=== PATIENT | male | born 1955 | race Caucasian/White ===

== ENCOUNTER 2019-02-22 10:57 | Day surgery (SDC) | payer OTHER ==
[~2019-02-22] VITALS: Ht 180.3 cm; Wt 104.3 kg
[~2019-02-22 10:57] MED LIST: ALEV220T22 PO; FISH1000 PO; MULTCAP PO; NS 1,000 ML IV ONE; OMEP20CA3 PO; VITA-157 PO
[2019-02-22] MEDS ORDERED: PROPOFOL 200 MG/20 ML VIAL As Ordered ONE ×2 (12:59→13:00)
[2019-02-22] MEDS ORDERED: LIDOCAINE 2% INJ 100 MG/5 ML SDV (FOR ANES.) As Ordered ONE (13:00)
[2019-02-22] MEDS ORDERED: fentaNYL 100 MCG/2 ML INJECTION (J3010) As Ordered ONE (13:00)
--- NOTE | 2019-02-22 13:34 | ROOR ---
Patient Name: Westley Mays Procedure Date: 02/22/2019 1:22 PM Date of : 1955 Age: 64 Room: [facility] Gender: Male Note Status: Finalized Procedure: Upper GI endoscopy Indications: Heartburn Providers: Chris OLVERA MD Referring MD: ISRA BATES MD Requesting Provider: Medicines: Monitored Anesthesia Care Complications: No immediate complications. Procedure: Pre-Anesthesia Assessment: - The heart rate, respiratory rate, oxygen saturations, blood pressure, adequacy of pulmonary ventilation, and response to care were monitored throughout the procedure. The Endoscope was introduced through the mouth, and advanced to the second part of duodenum. The upper GI endoscopy was accomplished without difficulty. The patient tolerated the procedure well. Findings: The Z-line was variable and was found 41 cm from the incisors. The esophagus was normal. The stomach was normal. The examined duodenum was normal. Impression: - Z-line variable, 41 cm from the incisors. - Normal esophagus. - Normal stomach. - Normal examined duodenum. - No specimens collected. Recommendation: - Continue present medications. - Observe patient's clinical course. - Follow an antireflux regimen. Chris Olvera MD Chris OLVERA MD 02/22/2019 1:33:50 PM Electronically signed by Chris OLVERA MD Number of Addenda: 0 Note Initiated On: 02/22/2019 1:22 PM Estimated Blood Loss: Estimated blood loss: none.
--- NOTE | 2019-02-22 13:57 | ROOR ---
Patient Name: Westley Mays Procedure Date: 02/22/2019 1:23 PM Date of : 1955 Age: 64 Room: [facility] Gender: Male Note Status: Finalized Procedure: Colonoscopy Indications: Rectal bleeding Providers: Chris OLVERA MD Referring MD: ISRA BATES MD Requesting Provider: Medicines: Monitored Anesthesia Care Complications: No immediate complications. Procedure: Pre-Anesthesia Assessment: - The heart rate, respiratory rate, oxygen saturations, blood pressure, adequacy of pulmonary ventilation, and response to care were monitored throughout the procedure. The Colonoscope was introduced through the anus and advanced to the terminal ileum, with identification of the appendiceal orifice and IC valve. The colonoscopy was performed without difficulty. The patient tolerated the procedure well. The quality of the bowel preparation was good. Findings: The perianal and digital rectal examinations were normal. A 7 mm polyp was found in the rectum (benign-appearing lesion @ 9 cm from verge). The polyp was semi-pedunculated. The polyp was removed with a cold snare. Resection and retrieval were complete. To prevent bleeding after the polypectomy, one hemostatic clip was successfully placed. There was no bleeding at the end of the procedure. Two sessile polyps were found in the sigmoid colon and cecum. The polyps were 4 to 5 mm in size. These polyps were removed with a cold snare. Resection and retrieval were complete. Mild sigmoid diverticulosis and small internal hemorrhoids. The exam was otherwise without abnormality on direct and retroflexion views. Impression: - One benign appearing 7 mm polyp in the upper rectum removed with a cold snare. Resected and retrieved. Clip was placed. - Two 4 to 5 mm polyps in the sigmoid colon and in the cecum, removed with a cold snare. Resected and retrieved. - Mild sigmoid diverticulosis and small internal hemorrhoids. - The examination was otherwise normal on direct and retroflexion views. Recommendation: - Repeat colonoscopy in 5 years for adenoma surveillance. Chris Olvera MD Chris OLVERA MD 02/22/2019 1:56:40 PM Electronically signed by Chris OLVERA MD Number of Addenda: 0 Note Initiated On: 02/22/2019 1:23 PM Estimated Blood Loss: Estimated blood loss: none.
[2019-02-22 14:10] VITALS: BP 143/98
== END 2019-02-22 14:19 | disposition home or self-care (01) ==
LOC: M OPP 10:57
PROVIDERS: ATTEND Internal Medicine Gastroenterology
DX: D12.0 Benign neoplasm of cecum (principal); D12.8 Benign neoplasm of rectum; K57.30 Diverticulosis of large intestine without perforation or abscess without bleeding; K63.5 Polyp of colon; K64.8 Other hemorrhoids; K62.1 Rectal polyp; K62.5 Hemorrhage of anus and rectum; K22.8 Other specified diseases of esophagus; R12 Heartburn
CPT/HCPCS: 43235; 45385; 88305; J3010